=== PATIENT | female | born 2005 | race Hispanic/Latino ===

== ENCOUNTER → 2024-08-06 12:45 | Outpatient (CLI) | payer OTHER, SELFPAY ==
--- NOTE | 2024-08-06 16:19 | DIET.OUTPTC ---
Dietary Outpatient Consultation Note Consultation Date: 08/06/2024 Assessment: 18 y F referred to dietitian for preDM and obesity. Pt accompanied by mother. Mother speaks Occitan, pt does not. core worker services used intermittently. Reports primary reason for visit is emesis after eating. Emesis is occurring nightly around same time every night happens 1x, close to after taking medication before pt has tea and goes to bed. Pt describes symptoms of stomach upset and excess saliva and within minutes vomiting. Pt associates it with nightly medication. Mother started noticing this 4-5 months ago, unsure if it was happening longer than that. Meds managed by mother. Pt is taking metformin, iron and vitamin D BID. [facility] prescribed BID at [facility] mg at [facility] upon results indicating iron def per pt mother. Current prescription per faxed over referral indicate iron is to be taken 1x/day at 65 mg. Currently getting it BID along with the vitamin D dose. Takes victoza 1.8 mg in morning daily. Pt has previous educ on BG management at [facility] [place]. Diet recall: 10a-noon: 1 pb sandwich with glass of milk or cereal noon-3pm: 2-3 oz cheese plus 4 crackers dinner 5-6pm: cheese and ham sandwich (1) with tator tots (1 handful) and carrots or ramen noodles sometimes with chicken nuggets and carrots Sometimes bed time snack of cheese and crackers again Notes feeling very hungry before dinner times sometimes and eating within 5 minutes. Otherwise takes 20-30 minutes to eat at meal times. Besides occasionally rapid eating related to excess hunger before dinner, pt has normal eating pace and normal portion sizes. Activity: walking 30 mins daily Daily bowel movement type 2 or type 5 on [facility] stool chart A1c 5.4% recently. Ht: Wt: 262 lb BMI: 49.66 UBW: Was 275 lb prior to starting victoza Nutrition Diagnosis: (suspected) Excessive mineral intake r/t misunderstood prescription directions aeb pt taking double iron dose than prescribed according to faxed referral medication list Interventions: -Discussed that according to faxed referral, rx of iron is only 65 mg daily. Pt has appt with doctor this Sunday. Will review doctor's recc. Encouraged to call office beforehand for further rx clarification. No CBC panel or [facility] available at this time. -Pairing of macronutrients, which pt [facility] along with carb amounts at meals -Having a meal over cheese and crackers to avoid excess hunger and rapid eating at dinner -Fiber intake, amounts, and food sources Goals: -chicken quesadilla with nonstarchy veggies over cheese and crackers for increased satiety between morning and dinner meal -Keep Sunday appt with doctor- check with doctor on recc iron and vitamin D dose and discuss other medications side effects Monitoring/Evaluations: f/u in 1 month to re-assess if symptoms persist Electronically Signed by: Jenise Purvis 08/06/24 16:19 Clinical Dietitian [address] [id number]
== END ==
PROVIDERS: PCP Specialist; Referring Provider Specialist
DX: R73.03 Prediabetes (principal); E66.9 Obesity, unspecified; Z71.3 Dietary counseling and surveillance; R11.10 Vomiting, unspecified; Z68.42 Body mass index [BMI] 45.0-49.9, adult
CPT/HCPCS: 97802